=== PATIENT | female | born 1965 | race American Indian/Alaskan Native ===

== ENCOUNTER 2016-11-11 19:02 | Emergency (ER) | payer MEDICAID ==
[~2016-11-11] VITALS: Ht 172.7 cm; Wt 122.5 kg
--- NOTE | 2016-11-11 19:13 | NUR ---
Patient to ER bed 4 to gown for evaluation. Side rails up. Report given to BO LIND.
[2016-11-11 19:15] VITALS: BP_SYST 209
[2016-11-11] MEDS ORDERED: digitek PO (19:37)
[2016-11-11] MEDS ORDERED: ALPR0.5T8 PO (19:38)
[2016-11-11] MEDS ORDERED: BACL10TA PO (19:39)
[2016-11-11] MEDS ORDERED: LOSA50TA3 PO (19:40)
[2016-11-11] MEDS ORDERED: FURO-149 PO (19:40)
--- NOTE | 2016-11-11 19:40 | NUR ---
DR. BENITEZ AT BEDSIDE EXAMINING THE PT.
[2016-11-11] MEDS ORDERED: CHOL200035 PO (19:41)
[2016-11-11] MEDS ORDERED: NAPR-690 PO (19:42)
[2016-11-11] MEDS ORDERED: GLU500 PO (19:42)
[2016-11-11] MEDS ORDERED: AZU500 PO (19:43)
[2016-11-11] MEDS ORDERED: MIRT30TA7 PO (19:43)
[2016-11-11] MEDS ORDERED: CARV12.548 PO (19:44)
[2016-11-11] MEDS ORDERED: ALBU8.5H8 INH (19:45)
[2016-11-11] MEDS ORDERED: FOLI-43 PO (19:45)
--- NOTE | 2016-11-11 19:45 | NUR ---
Pt. to ER AAOx4 presented herself with high blood pressure and back pain states that she went to [facility] to submit herself however the staff refuses take her with high blood pressure systolic 220, c/o fe pain 10/04, states " everything in life sucks, my life is so sad and i can not stop crying". skin cool to touch, tachycardiac, clear speech, follows commands, on director of cardiac cath lab
--- NOTE | 2016-11-11 19:46 | NUR ---
Medication reconciliation completed with information provided by patient. Any prior medication reconciliation on file was reviewed and corrected.
[2016-11-11] MEDS ORDERED: cloNIDine HCL 0.1 MG TABLET PO ONE (20:00)
[2016-11-11] MEDS ORDERED: NACL 0.9% 1,000 ML IV ONE (20:00)
[2016-11-11] MEDS ORDERED: LORazepam 2 MG/ML VIAL (FOR ER USE) IVP ONE (20:00)
[2016-11-11 20:02] LABS: BASOPHILS # (AUTO) 0.1 K/uL (0.0-0.2); BASOPHILS % (AUTO) 0.5 % (0.0-2.0); EOSINOPHILS # (AUTO) 0.3 K/uL (0.0-0.4); EOSINOPHILS % (AUTO) 1.8 % (0.0-4.0); HEMATOCRIT 45.9 % (36-48); HEMOGLOBIN 14.7 g/dL (12.0-16.0); LYMPHOCYTES % (AUTO) 27.6 % (20.5-51.5); MEAN CORPUSCULAR HEMOGLOBIN 29 pg (27-31); MEAN CORPUSCULAR HGB CONC 32 % (32-36); MEAN CORPUSCULAR VOLUME 91 fL (79.0-98.0); MONOCYTES # (AUTO) 1.3 K/uL (0.0-1.0); MONOCYTES % (AUTO) 9.1 % (1.7-9.3); NEUTROPHILS # (AUTO) 8.8 K/uL (1.8-7.7); PLATELET COUNT (AUTO) 392 K/uL (130-430); RED BLOOD CELL COUNT(AUTO) 5.02 MIL/uL (4.2-6.2); RED CELL DISTRIBUTION WIDTH 14.8 % (9.0-15.0); WHITE BLOOD COUNT (AUTO) 14.5 K/uL (4.8-10.8)
[2016-11-11 20:10] LABS: ANION GAP 7 (5-15); CALCIUM 9.1 mg/dL (8.4-11.0); CHLORIDE 103 mmol/L (98-107); CREATININE 0.93 mg/dL (0.55-1.30); GLUCOSE 215 mg/dL (70-99); POTASSIUM 3.9 mmol/L (3.5-5.1); SODIUM SERUM 136 mmol/L (136-145); UREA NITROGEN, BLOOD 16 mg/dL (8-21)
[2016-11-11 20:13] LABS: GFR AFRICAN AMERICAN 82 mL/min (>90)
[2016-11-11 20:14] LABS: ALANINE AMINOTRANSFERASE 54 U/L (12-78); ALBUMIN 3.6 g/dL (3.4-4.8); ASPARTATE AMINOTRANSFERASE 32 U/L (10-37); SALICYLATE 3 mg/dL (3-30); TOTAL BILIRUBIN 0.2 mg/dL (0.0-1.0)
[2016-11-11 20:20] LABS: ALCOHOL, BLOOD < 3 mg/dL (<10)
[2016-11-11 20:22] LABS: ACETAMINOPHEN < 1 ug/mL (1-30)
--- NOTE | 2016-11-11 21:05 | NUR ---
Patient resting quietly. No acute distress noted. Vital signs within normal range.
--- NOTE | 2016-11-11 21:11 | NUR ---
Pelon baird in ED - 11/11/16 at 2356 by TONY Pt. to the bathroom carried by mother to obtain urine sample, pt. calm, talkative, smiling and playful
[2016-11-11 22:50] VITALS: BP_SYST 131
--- NOTE | 2016-11-11 22:50 | NUR ---
Patient given written and verbal discharge instructions and verbalizes understanding. ER MD Dr. Hu discussed with patient the results and treatment provided. Patient in stable condition. ID arm band removed. IV catheter removed intact and dressing applied, no active bleeding. NO rX given. Patient educated on pain management and to follow up with PMD. Pain Scale 0/10 Opportunity for questions provided and answered.
== END 2016-11-11 22:50 | disposition home or self-care (01) ==
LOC: SED 19:02
DX: I10 Essential (primary) hypertension (principal); F41.8 Other specified anxiety disorders; Z79.899 Other long term (current) drug therapy
CPT/HCPCS: 36415; 80053; 82962; 85025; 96361; 96374; 99284; G0480; G0481; G0482; J2060; J7030

== ENCOUNTER 2017-04-03 00:01 | Emergency (ER) | payer MEDICAID ==
[~2017-04-03] VITALS: Ht 172.7 cm; Wt 124.7 kg
[2017-04-03 00:01] VITALS: BP_SYST 200
[~2017-04-03 00:01] MED LIST: ALBU8.5H8 INH; ALPR0.5T8 PO; AZU500 PO; BACL10TA PO; CARV12.548 PO; CHOL200035 PO; FOLI-43 PO; FURO-149 PO; GLU500 PO; LOSA50TA3 PO; MIRT30TA7 PO; NAPR-690 PO; digitek PO
[2017-04-03] MEDS ORDERED: MOME220A2 INH (00:33)
[2017-04-03] MEDS ORDERED: METH2.5T PO (00:33)
[2017-04-03] MEDS ORDERED: BUPR-120 PO (00:33)
[2017-04-03] MEDS ORDERED: GABA-531 PO (00:33)
[2017-04-03] MEDS ORDERED: VITD2000 PO (00:33)
[2017-04-03] MEDS ORDERED: TOFA5TAB PO (00:33)
[2017-04-03] MEDS ORDERED: ALBMDI INH (00:33)
[2017-04-03] MEDS ORDERED: FLUT1BLS3 INH (00:33)
[2017-04-03] MEDS ORDERED: DIGO250T78 PO (00:33)
[2017-04-03] MEDS ORDERED: cloNIDine HCL 0.1 MG TABLET PO ONE (00:45)
[2017-04-03] MEDS ORDERED: FLUCONAZOLE 200 MG TABLET (DIFLUCAN) PO ONE (00:45)
[2017-04-03] MEDS ORDERED: LORazepam 1 MG TABLET PO ONE (00:45)
[2017-04-03] MEDS ORDERED: FLUCONAZOLE 100 MG TABLET (DIFLUCAN) ONE (00:56)
[2017-04-03 01:41] VITALS: BP_SYST 167
== END 2017-04-03 01:41 | disposition home or self-care (01) ==
LOC: SED 00:01
DX: I10 Essential (primary) hypertension (principal); F41.9 Anxiety disorder, unspecified; B37.9 Candidiasis, unspecified; E11.9 Type 2 diabetes mellitus without complications; F32.9 Major depressive disorder, single episode, unspecified; Z98.51 Tubal ligation status; Z79.899 Other long term (current) drug therapy; Z90.49 Acquired absence of other specified parts of digestive tract
CPT/HCPCS: 99284

== ENCOUNTER 2017-04-07 19:45 | Emergency (ER) | payer MEDICAID ==
[~2017-04-07] VITALS: Ht 172.7 cm; Wt 124.7 kg
[~2017-04-07 19:45] MED LIST changes: +ALBMDI INH; -ALBU8.5H8 INH; -ALPR0.5T8 PO; -AZU500 PO; +BUPR-120 PO; -CHOL200035 PO; +DIGO250T78 PO; +FLUT1BLS3 INH; +GABA-531 PO; +METH2.5T PO; +MOME220A2 INH; +TOFA5TAB PO; +VITD2000 PO; -digitek PO
[2017-04-07 19:51] VITALS: BP_SYST 157
[2017-04-07] MEDS ORDERED: LORazepam 2 MG/ML VIAL (FOR ER USE) IVP ONE (20:15)
[2017-04-07 20:36] LABS: BASOPHILS # (AUTO) 0.1 K/uL (0.0-0.2); BASOPHILS % (AUTO) 0.5 % (0.0-2.0); EOSINOPHILS # (AUTO) 0.1 K/uL (0.0-0.4); EOSINOPHILS % (AUTO) 0.5 % (0.0-4.0); HEMATOCRIT 45.3 % (36-48); HEMOGLOBIN 14.8 g/dL (12.0-16.0); LYMPHOCYTES % (AUTO) 26.7 % (20.5-51.5); MEAN CORPUSCULAR HEMOGLOBIN 31 pg (27-31); MEAN CORPUSCULAR HGB CONC 33 % (32-36); MEAN CORPUSCULAR VOLUME 94 fL (79.0-98.0); MONOCYTES # (AUTO) 1.1 K/uL (0.0-1.0); MONOCYTES % (AUTO) 7.1 % (1.7-9.3); NEUTROPHILS # (AUTO) 9.8 K/uL (1.8-7.7); NEUTROPHILS % (AUTO) 65.2 % (40.0-70.0); PLATELET COUNT (AUTO) 374 K/uL (130-430); RED CELL DISTRIBUTION WIDTH 14.4 % (9.0-15.0); WHITE BLOOD COUNT (AUTO) 15.1 K/uL (4.8-10.8)
[2017-04-07 20:48] LABS: PROTHROMBIN TIME 10.1 SECS (9.5-12.5)
[2017-04-07 21:03] LABS: ALBUMIN 3.6 g/dL (3.4-4.8); CALCIUM 8.8 mg/dL (8.4-11.0); CREATININE 1.24 mg/dL (0.55-1.30); POTASSIUM 3.7 mmol/L (3.5-5.1); TOTAL BILIRUBIN 0.5 mg/dL (0.0-1.0)
[2017-04-07] MEDS ORDERED: INSULIN NPH 100 UNITS/ML 10 ML VIAL SUBCUT ONE (21:15)
[2017-04-07] MEDS ORDERED: INSULIN REGULAR, HUMAN 10 UNITS/0.1 ML INJ SUBCUT ONE (21:15)
[2017-04-07] MEDS ORDERED: NACL 0.9% 1,000 ML IV ONE (21:15)
[2017-04-07 22:05] LABS: BILIRUBIN,URINE NEGATIVE (NEGATIVE); BLOOD, URINE 2+ (NEGATIVE); CLARITY/URINE HAZY (CLEAR); COLOR,URINE YELLOW (YELLOW); GLUCOSE,URINE 3+ (NEGATIVE); KETONES,URINE NEGATIVE (NEGATIVE); LEUKOCYTE ESTERASE ,URINE NEGATIVE (NEGATIVE); NITRITE, URINE NEGATIVE (NEGATIVE); PROTEIN URINE 1+ (NEGATIVE); UROBILINOGEN,URINE 0.2 (0.2-1.0)
[2017-04-07 22:31] LABS: BACTERIA,URINE FEW /HPF (None Seen); FINE GRANULAR CASTS,URINE 0-10 /LPF (None Seen); MUCUS,URINE None Seen /LPF (None Seen); WBC,URINE 0-3 /HPF (0-3)
[2017-04-07 22:37] LABS: BARBITURATE, URINE NEGATIVE (NEG <=200); BENZODIAZEPINE, URINE POSITIVE (NEG <=150); CANNABINOID, URINE NEGATIVE (NEG <=50); COCAINE, URINE NEGATIVE (NEG <=150); METHAMPHETAMINES SCREEN,URINE POSITIVE (NEG <=500); OPIATE, URINE NEGATIVE (NEG <=100); PHENCYCLIDINE SCREEN,URINE NEGATIVE (NEG <=25); UR TRICYCLIC ANTIDEPRESSANTS NEGATIVE (NEG <=300); URINE AMPHETAMINE POSITIVE (NEG <=500); URINE METHADONE NEGATIVE (NEG <=200); URINE OXYCODONE SCREEN NEGATIVE (NEG <=100); URINE PROPOXYPHENE SCREEN NEGATIVE (NEG <=300)
[2017-04-07] MEDS ORDERED: ADENOSINE 6MG/2ML VIAL IVP ONE (22:45)
[2017-04-07 23:20] VITALS: BP_SYST 137
== END 2017-04-07 23:20 | disposition home or self-care (01) ==
LOC: SED 19:45
DX: F15.10 Other stimulant abuse, uncomplicated (principal); F41.9 Anxiety disorder, unspecified; E11.9 Type 2 diabetes mellitus without complications; I10 Essential (primary) hypertension; F32.9 Major depressive disorder, single episode, unspecified; Z79.899 Other long term (current) drug therapy
CPT/HCPCS: 36415; 36600; 71010; 80053; 80307; 81000; 82803; 83605; 83880; 84484; 85025; 85379; 85610; 87040; 93005; 96361; 96372; 96374; 96375; 99285; J0153; J2060; J7030; J1815

== ENCOUNTER 2017-05-07 20:07 | Emergency (ER) | payer MEDICAID ==
[~2017-05-07] VITALS: Ht 172.7 cm; Wt 115.7 kg
[2017-05-07 20:07] VITALS: BP_SYST 179
--- NOTE | 2017-05-07 20:07 | NUR ---
Patient to ER bed 1 to gown for evaluation. Side rails up. Report given to BO HAMILTON.
--- NOTE | 2017-05-07 20:10 | NUR ---
Patient placed on suicide precautions. Patient placed in room within close proximity to nurses' station for closer observation and monitoring. All clothing removed, placed in hospital gown. Metal detector wand used to further screen patient of any potential hazardous belongings. All belongings inventoried, placed in bags and removed from room. Cabinets locked. BP and pulse oximeter cords, and lunchroom monitor leads removed. Addendum: 05/08/17 at 0400 by JUDI See suicide packet in chart.
--- NOTE | 2017-05-07 20:10 | NUR ---
ER Dr. Collins at bedside examining patient.
--- NOTE | 2017-05-07 20:10 | NUR ---
Pt states that around 1500, pt developed chest pain and took 10 nitros for the pain. Upon arrivial by ALS, pt was inconsoluble crying and stating she is in no pain at this time. Pt denies trying to herself or the staff. Pt is not hearing voices or seeing things. Pt states that she has been really depressed since her mom . Pt stated that "I hate my family". AAOx4. Will continue to monitor. No other injuries or complaints mentioned/noted. No distress noted.
[2017-05-07] MEDS ORDERED: NACL 0.9% 1,000 ML IV ONE (20:17)
--- NOTE | 2017-05-07 20:23 | NUR ---
Called Poison Control at [phone] and spoke with TERESITA. Per recommendations: MONITOR VITALS FOR 2 HOURS AND DRAW LABS FOR TYLENOL AND ASA. Dr. SYED notified. Will continue to monitor patient.
[2017-05-07] MEDS ORDERED: LORazepam 2 MG/ML VIAL (FOR ER USE) IVP ONE (20:30)
[2017-05-07 20:40] LABS: BASOPHILS % (AUTO) 0.4 % (0.0-2.0); EOSINOPHILS # (AUTO) 0.3 K/uL (0.0-0.4); HEMATOCRIT 44.8 % (36-48); HEMOGLOBIN 14.4 g/dL (12.0-16.0); LYMPHOCYTES # (AUTO) 2.7 K/uL (1.0-5.5); LYMPHOCYTES % (AUTO) 28.4 % (20.5-51.5); MEAN CORPUSCULAR HEMOGLOBIN 30 pg (27-31); MEAN CORPUSCULAR HGB CONC 32 % (32-36); MEAN CORPUSCULAR VOLUME 93 fL (79.0-98.0); MONOCYTES # (AUTO) 1.3 K/uL (0.0-1.0); MONOCYTES % (AUTO) 13.5 % (1.7-9.3); NEUTROPHILS # (AUTO) 5.3 K/uL (1.8-7.7); NEUTROPHILS % (AUTO) 54.7 % (40.0-70.0); PLATELET COUNT (AUTO) 348 K/uL (130-430); RED CELL DISTRIBUTION WIDTH 13.5 % (9.0-15.0); WHITE BLOOD COUNT (AUTO) 9.6 K/uL (4.8-10.8)
[2017-05-07 20:47] LABS: BILIRUBIN,URINE NEGATIVE (NEGATIVE); CLARITY/URINE CLEAR (CLEAR); COLOR,URINE YELLOW (YELLOW); GLUCOSE,URINE 3+ (NEGATIVE); KETONES,URINE NEGATIVE (NEGATIVE); LEUKOCYTE ESTERASE ,URINE NEGATIVE (NEGATIVE); NITRITE, URINE NEGATIVE (NEGATIVE); PROTEIN URINE TRACE (NEGATIVE); UROBILINOGEN,URINE 0.2 (0.2-1.0)
[2017-05-07 20:58] LABS: BLOOD, URINE TRACE (NEGATIVE)
[2017-05-07 20:59] LABS: ANION GAP 8 (5-15); CALCIUM 8.9 mg/dL (8.4-11.0); CHLORIDE 96 mmol/L (98-107); CREATININE 0.91 mg/dL (0.55-1.30); POTASSIUM 3.9 mmol/L (3.5-5.1); SODIUM SERUM 131 mmol/L (136-145); UREA NITROGEN, BLOOD 11 mg/dL (8-21)
[2017-05-07 21:00] LABS: ALANINE AMINOTRANSFERASE 59 U/L (12-78); ALBUMIN 3.5 g/dL (3.4-4.8); ASPARTATE AMINOTRANSFERASE 27 U/L (10-37); TOTAL BILIRUBIN 0.4 mg/dL (0.0-1.0)
[2017-05-07 21:00] LABS: BARBITURATE, URINE NEGATIVE (NEG <=200); BENZODIAZEPINE, URINE POSITIVE (NEG <=150); CANNABINOID, URINE NEGATIVE (NEG <=50); COCAINE, URINE NEGATIVE (NEG <=150); METHAMPHETAMINES SCREEN,URINE POSITIVE (NEG <=500); OPIATE, URINE NEGATIVE (NEG <=100); PHENCYCLIDINE SCREEN,URINE NEGATIVE (NEG <=25); UR TRICYCLIC ANTIDEPRESSANTS NEGATIVE (NEG <=300); URINE AMPHETAMINE POSITIVE (NEG <=500); URINE METHADONE NEGATIVE (NEG <=200); URINE OXYCODONE SCREEN NEGATIVE (NEG <=100); URINE PROPOXYPHENE SCREEN NEGATIVE (NEG <=300)
--- NOTE | 2017-05-07 21:00 | NUR ---
# 20 gauge angiocath placed to R AC. Use of asceptic technique. Opsite placed over site. Blood return noted. Blood for lab drawn from site. Flushed with 10 cc of normal saline. No evidence of infiltration noted. Patient tolerated well. Started by Zoe SORIANO.
[2017-05-07 21:01] LABS: PROTHROMBIN TIME 9.8 SECS (9.5-12.5)
[2017-05-07 21:03] LABS: GFR AFRICAN AMERICAN 84 mL/min (>90); GLUCOSE 506 mg/dL (70-99)
[2017-05-07 21:04] LABS: ALCOHOL, BLOOD < 3 mg/dL (<10)
[2017-05-07 21:05] LABS: ACETAMINOPHEN < 1 ug/mL (1-30)
--- NOTE | 2017-05-07 21:07 | NUR ---
Pt is resting in the bed. VSS. Will continue to monitor.
--- NOTE | 2017-05-07 21:07 | NUR ---
Note oli in ED - 05/08/17 at 0358 by JUDI Pt is resting in the bed. VSS.Will continue to monitor.
[2017-05-07] MEDS ORDERED: NS 500 ML IV ONE (21:15)
[2017-05-07] MEDS ORDERED: INSULIN REGULAR, HUMAN 10 UNITS/0.1 ML INJ IVP ONE (21:15)
[2017-05-07 21:17] LABS: BACTERIA,URINE RARE /HPF (None Seen)
--- NOTE | 2017-05-07 22:07 | NUR ---
Pt is resting comfortably in the bed. VSS. Will continue to monitor.
--- NOTE | 2017-05-07 23:09 | NUR ---
Pt is resting comfortably in the bed. VSS. Will continue to monitor.
--- NOTE | 2017-05-08 00:07 | NUR ---
Pt is resting comfortably in the bed. VSS. Will continue to monitor.
--- NOTE | 2017-05-08 01:07 | NUR ---
Pt is resting comfortably in the bed. VSS. Will continue to monitor.
--- NOTE | 2017-05-08 01:50 | NUR ---
PT IS SLEEPING IN ER BED COMFORTABLY,NO SIGN OF DISTRESS .CONTINUE OF MONITORING.
--- NOTE | 2017-05-08 02:07 | NUR ---
Pt is resting comfortably in the bed. VSS. Will continue to monitor.
[2017-05-08] MEDS ORDERED: INSULIN REGULAR, HUMAN 10 UNITS/0.1 ML INJ IVP ONE (02:30)
--- NOTE | 2017-05-08 02:50 | NUR ---
PT STILL SLEEPING ,CONTINUE OF MONITORING
--- NOTE | 2017-05-08 03:07 | NUR ---
Pt is resting comfortably in the bed. VSS. Will continue to monitor.
--- NOTE | 2017-05-08 03:50 | NUR ---
PT ASKED SOME SNACKS STATED THAT SHE'S HUNGRY,AFTER SHE ATE HER SNACKS SHE BACK TO SLEEP.CONTINUE OF MONITORING.
--- NOTE | 2017-05-08 04:07 | NUR ---
Pt is resting comfortably in the bed. VSS. Will continue to monitor.
--- NOTE | 2017-05-08 04:50 | NUR ---
PT IS AWAKE SHE ASKED TO GO TO THE REST ROOM,PT BACK TO BED AND SLEEP.CONTINUE OF MONITORING.
--- NOTE | 2017-05-08 05:07 | NUR ---
Pt is resting comfortably in the bed. VSS. Will continue to monitor.
--- NOTE | 2017-05-08 05:25 | NUR ---
Pt woke up stated that she could not breathe. Lung sounds clear bilaterally. Pt appears very anxious. Dr. Collins made aware.
--- NOTE | 2017-05-08 05:35 | NUR ---
IV on R AC no longer viable. # 20 gauge angiocath placed to R hand. Use of asceptic technique. Opsite placed over site. Blood return noted. Flushed with 10 cc of normal saline. No evidence of infiltration noted. Patient tolerated well.
[2017-05-08] MEDS ORDERED: LORazepam 2 MG/ML VIAL (FOR ER USE) IVP ONE (05:45)
--- NOTE | 2017-05-08 05:50 | NUR ---
PT IS AWAKE SHE STATED SHE FEEL ANXIOUS RIGHT NOW,NURSE CAME TO GIVE SOME MEDICATION TO CALM DOWN .PT BACK TO SLEEP NOW.CONTINUE OF MONITORING.
--- NOTE | 2017-05-08 06:02 | NUR ---
CLOSING MY NOTES ENDORSE TO THE DAY SHIFT.
--- NOTE | 2017-05-08 06:07 | NUR ---
Pt is resting comfortably in the bed. VSS. Will continue to monitor.
--- NOTE | 2017-05-08 06:41 | NUR ---
PATIENT IN ER BED WITH EYES CLOSED LYING ON HER LEFT SIDE .WILL CONTINUE TO MOINTOR AT BEDSIDE .
--- NOTE | 2017-05-08 07:00 | NUR ---
Received report from BO Navarro at bedside. Patient remains on suicide precautions. Patient placed in room within close proximity to nurses' station for closer observation and monitoring. All clothing removed, placed in hospital gown. Metal detector wand used to further screen patient of any potential hazardous belongings. All belongings have been inventoried, placed in bags and removed from room. Cabinets locked. BP and pulse oximeter cords, and electrical panel builder leads removed. 1:1 sitter remains at bedside for close observations for safety.
--- NOTE | 2017-05-08 07:05 | NUR ---
Report and care endorsed to Nick SORIANO.
--- NOTE | 2017-05-08 07:15 | NUR ---
Pt is resting comfortably in the bed. VSS. Will continue to monitor.
--- NOTE | 2017-05-08 07:28 | NUR ---
PATIENT IS SETTING UP AT SIDE OF BED EATING HER BREAKFAST .
--- NOTE | 2017-05-08 07:30 | NUR ---
Pt is resting comfortably in the bed. VSS. Will continue to monitor.
--- NOTE | 2017-05-08 07:45 | NUR ---
Pt is resting comfortably in the bed. VSS. Will continue to monitor.
--- NOTE | 2017-05-08 08:00 | NUR ---
Patient resting quietly. No acute distress noted. Vital signs within normal range.
--- NOTE | 2017-05-08 08:15 | NUR ---
Patient resting quietly. No acute distress noted. Vital signs within normal range.
--- NOTE | 2017-05-08 08:23 | NUR ---
Patient is lying in er bed with eyes closed .will continue to mointor at bedside
--- NOTE | 2017-05-08 08:30 | NUR ---
Patient resting quietly. No acute distress noted. Vital signs within normal range.
--- NOTE | 2017-05-08 08:45 | NUR ---
Patient resting quietly. No acute distress noted. Vital signs within normal range.
--- NOTE | 2017-05-08 08:45 | NUR ---
Patient resting quietly. No acute distress noted. Vital signs within normal range.
--- NOTE | 2017-05-08 09:00 | NUR ---
Patient resting quietly. No acute distress noted. Vital signs within normal range.
[2017-05-08] MEDS ORDERED: LORazepam 2 MG/ML VIAL (FOR ER USE) IM ONE (09:15)
--- NOTE | 2017-05-08 09:15 | NUR ---
Patient resting quietly. No acute distress noted. Vital signs within normal range.
--- NOTE | 2017-05-08 09:30 | NUR ---
Patient resting quietly. No acute distress noted. Vital signs within normal range.
--- NOTE | 2017-05-08 09:45 | NUR ---
Patient resting quietly. No acute distress noted. Vital signs within normal range.
--- NOTE | 2017-05-08 10:00 | NUR ---
Patient resting quietly. No acute distress noted. Vital signs within normal range.
--- NOTE | 2017-05-08 10:05 | NUR ---
Social Service Note: RN PEDIATRIC called to ED to meet with pt; pt presents crying and upset; talking loudly and becoming upset. RN PEDIATRIC provided emotional support. Pt states that her mother March 30 of this year and she is depressed. Pt states that she is a "depressed person". Pt states that her outpatient psychiatrist is Dr. Chris; pt states that she has had problems getting an appointment for follow up. Pt states that she was at [facility] for 3 days a week before . Pt states that she was also at [facility] in the beginning of March but left before the end of treatment due to her mother passing; pt states that she is not allowed back at [facility] due to leaving treatment twice before completing the program. Pt continues to cry on and off during assessment and becomes upset. Pt states that she took 10 nitro in a 3 hour period before coming to the hospital; pt states that she was having chest pain at home and her father gave her the nitro to take; pt denies that this was a suicide attempt. Pt states that she does not have any suicidal ideations; pt states that she has never attempted suicide. Pt reports that she has a lot of reasons to live; pt states that she is going to [place] for [place] to see her daughters; pt again states that she has no suicidal ideations. RN PEDIATRIC spoke with pt about her plan if she were discharged; pt states that she will go home and stay in her room and watch TV; pt wants to be alone she states. RN PEDIATRIC spoke to physician; pt's mood is labile and continues to change from calm and cooperative to crying and shouting. Pt should be evaluated by PET team or psychiatrist for further evaluation. RN PEDIATRIC will remain available for support and will follow up as needed.
--- NOTE | 2017-05-08 10:55 | NUR ---
patient is lying in er bed .
[2017-05-08] MEDS ORDERED: HALOPERIDOL LACTATE 5 MG/ML VIAL IM ONE ×2 (11:15→17:45)
[2017-05-08] MEDS ORDERED: DIPHENHYDRAMINE INJ 50 MG/ML VIAL IM ONE ×2 (11:15→17:45)
[2017-05-08] MEDS ORDERED: DIPHENHYDRAMINE INJ 50 MG/ML VIAL ONE ×2 (11:15→17:48)
--- NOTE | 2017-05-08 11:15 | NUR ---
Patient got up to use the restroom .patient was escourted to restroom and back to er bed .
--- NOTE | 2017-05-08 11:30 | NUR ---
patient was sitting at edge of er bed patient asked for water .water was given patient went back to lie bad in er bed with both side rails up for safty.will continue to monitor at bedside .
--- NOTE | 2017-05-08 11:30 | NUR ---
Medication administered per MD orders. No adverse reactions noted.
--- NOTE | 2017-05-08 11:45 | NUR ---
Patient recieved lunch tray at bedside patient was rest confortably in er bed .
--- NOTE | 2017-05-08 12:00 | NUR ---
Patient woke up to eat her lunch patient ate and tray was removed from room and is now in er bed resting .
--- NOTE | 2017-05-08 12:00 | NUR ---
Patient got out of bed waled to restroom and was escourted back to er bed patient sat in a chair at bedside asking to get dress and wanting to go home.
--- NOTE | 2017-05-08 12:15 | NUR ---
Patient got up from chair and drank a cup of water and went to sit in er bed will continue to monitor at bedside .
--- NOTE | 2017-05-08 12:30 | NUR ---
Patient took off her gown and stated that she was going to leave and wanted her clothes patient was redirected to put her gown back on .patient stated that she did not care charge nurse was notified and spoke to patient .will continue to monitor at bedside .
--- NOTE | 2017-05-08 12:43 | NUR ---
Patient is resting in er bed .will contiune to monitor .
--- NOTE | 2017-05-08 13:00 | NUR ---
Direct observation notes :Patient got out of bed and walked to restroom and was escourted back to er bed .
--- NOTE | 2017-05-08 13:15 | NUR ---
Observation notes : Patient is lying in er bed resting .
--- NOTE | 2017-05-08 13:15 | NUR ---
Pelon baird in [facility] - 05/08/17 at 1610 by SDCNARV observation notes: Patient is resting in bed with side rails up will contiune to monitor
--- NOTE | 2017-05-08 13:30 | NUR ---
Observation notes : Patient continues to be resting in bed will continue to monitor at bedside .
--- NOTE | 2017-05-08 13:55 | NUR ---
Pt BP 82/35. Dr Johnson notified. 1000 NS Bolus administered. Will continue to monitor
--- NOTE | 2017-05-08 14:00 | NUR ---
Observation notes: patient continues to be resting in er bed on her right side will continue to monitor at bed side .
--- NOTE | 2017-05-08 14:25 | NUR ---
Patient is resting in er bed with eyes closed will continue to monitor at bedside
--- NOTE | 2017-05-08 14:45 | NUR ---
observation notes : Patient is resting in bed
--- NOTE | 2017-05-08 15:00 | NUR ---
observation notes: patient continues to be lying in er bed with eyes closed will continue to monitor at bedside .
--- NOTE | 2017-05-08 15:26 | NUR ---
patient continues to be lying in the er bed with her eyes closed .will continue to monitor at bed side .
--- NOTE | 2017-05-08 15:30 | NUR ---
Observation notes: patient started to yell patient was redirected and patient clamed down and continued to lay down in er bed with side rail up.
--- NOTE | 2017-05-08 15:45 | NUR ---
observation notes : patient is resting in bed
--- NOTE | 2017-05-08 16:28 | NUR ---
PT sleeping @ this time. No signs of any type of distress. Vital signs stable. Will continue to monitor for changes.
--- NOTE | 2017-05-08 16:42 | NUR ---
PT sleeping @ this time. No signs of any type of distress. Vital signs stable. Will continue to monitor for changes.
--- NOTE | 2017-05-08 17:01 | NUR ---
Observation notes : Patient woke up got out of bed and walked to the restroom and was escourted back to er bed .patient is now in bed lying on her back with her eyes closed .
--- NOTE | 2017-05-08 17:15 | NUR ---
Observation notes : patient is resting in bed .
--- NOTE | 2017-05-08 17:34 | NUR ---
observation notes: patient continues to be lying in bed resting .
--- NOTE | 2017-05-08 17:47 | NUR ---
observation notes : patient is yelling in er bed asking for a shot rn was notified patient was redirected to stop yelling and calm down.rn in room
[2017-05-08] MEDS ORDERED: HALOPERIDOL LACTATE 5 MG/ML VIAL ONE (17:49)
--- NOTE | 2017-05-08 18:00 | NUR ---
observation notes : patient is lying on her leftside resting in er bed .
--- NOTE | 2017-05-08 18:15 | NUR ---
PT sleeping at this time, no signs of any distress. Vital signs stable. Will continue to monitor
--- NOTE | 2017-05-08 18:30 | NUR ---
PT sleeping at this time, no signs of any distress. Vital signs stable. Will continue to monitor
--- NOTE | 2017-05-08 18:45 | NUR ---
PT sleeping at this time, no signs of any distress. Vital signs stable. Will continue to monitor.
--- NOTE | 2017-05-08 19:00 | NUR ---
PT sleeping at this time, no signs of any distress. Vital signs stable. Will continue to monitor
--- NOTE | 2017-05-08 19:17 | NUR ---
PT sleeping at this time, no signs of any distress. Vital signs stable. Will continue to monitor
--- NOTE | 2017-05-08 19:23 | NUR ---
Endorsed care and report given to BO Tran at bedside.
--- NOTE | 2017-05-08 19:30 | NUR ---
PT SISTER, ANKUR, , NOTIFIED PT IS HERE AT [facility].
[2017-05-08] MEDS ORDERED: LORazepam 2 MG/ML VIAL IM ONE (19:45)
--- NOTE | 2017-05-08 19:45 | NUR ---
PT sleeping at this time, no signs of any distress. Vital signs stable. Will continue to monitor
--- NOTE | 2017-05-08 20:12 | NUR ---
Nurse at beside administering medication. PT remained calm and non combative. PT fell back to sleep and vital signs remained stable. Will continue to monitor PT for changes
--- NOTE | 2017-05-08 20:30 | NUR ---
Pelon baird in EDM - 05/08/17 at 2048 by ARDEN Nurse at beside administering medication. PT remained calm and non combative. PT fell back to sleep and vital signs remained stable. Will continue to monitor PT for changes
--- NOTE | 2017-05-08 20:30 | NUR ---
PT sleeping at this time, no signs of any distress. Vital signs stable. Will continue to monitor
--- NOTE | 2017-05-08 20:45 | NUR ---
PT sleeping at this time, no signs of any distress. Vital signs stable. Will continue to monitor
--- NOTE | 2017-05-08 21:00 | NUR ---
PT sleeping at this time, no signs of any distress. Vital signs stable. Will continue to monitor
--- NOTE | 2017-05-08 21:15 | NUR ---
PT sleeping at this time, no signs of any distress. Vital signs stable. Will continue to monitor
--- NOTE | 2017-05-08 21:30 | NUR ---
PT sleeping at this time, no signs of any distress. Vital signs stable. Will continue to monitor
--- NOTE | 2017-05-08 21:45 | NUR ---
PT sleeping at this time, no signs of any distress. Vital signs stable. Will continue to monitor
--- NOTE | 2017-05-08 22:00 | NUR ---
PT sleeping at this time, no signs of distress. PT vitals stable. Will continue to monitor.
--- NOTE | 2017-05-08 22:15 | NUR ---
PT sleeping at this time, no signs of any distress. Vital signs stable. Will continue to monitor
--- NOTE | 2017-05-08 22:30 | NUR ---
PT sleeping at this time, no signs of any distress. Vital signs stable. Will continue to monitor
--- NOTE | 2017-05-08 22:45 | NUR ---
PT sleeping at this time, no signs of any distress. Vital signs stable. Will continue to monitor
--- NOTE | 2017-05-08 23:00 | NUR ---
PT woke up to use the restroom. PT asked for medication and went back to sleep. No signs of any type of distress at the moment. PT vitals stable. Will continue to monitor PT for any changes
--- NOTE | 2017-05-08 23:15 | NUR ---
PT sleeping at this time, no signs of any distress. Vital signs stable. Will continue to monitor for any changes.
--- NOTE | 2017-05-08 23:30 | NUR ---
PT sleeping at this time, no signs of any distress. Vital signs stable. Will continue to monitor
--- NOTE | 2017-05-08 23:45 | NUR ---
PT sleeping at this time, no signs of any distress. Vital signs stable. Will continue to monitor
--- NOTE | 2017-05-09 | NUR ---
PT sleeping at this time, no signs of any distress. Vital signs stable. Will continue to monitor
--- NOTE | 2017-05-09 00:15 | NUR ---
PT sleeping at this time, no signs of any distress. Vital signs stable. Will continue to monitor
--- NOTE | 2017-05-09 00:30 | NUR ---
PT sleeping at this time, no signs of any distress. Vital signs stable. Will continue to monitor
--- NOTE | 2017-05-09 00:45 | NUR ---
PT sleeping at this time, no signs of any distress. Vital signs stable. Will continue to monitor
--- NOTE | 2017-05-09 01:00 | NUR ---
PT sleeping at this time, no signs of any distress. Vital signs stable. Will continue to monitor
--- NOTE | 2017-05-09 01:15 | NUR ---
PT SLEEPING CHEST RISING AND FALLING. NO SUICIDAL IDEATIONS. SAFETY PRECAUTIONS IN PLACE. WILL CONTINUE TO MONITOR.
--- NOTE | 2017-05-09 01:30 | NUR ---
PT SLEEPING CHEST RISING AND FALLING. NO SUICIDAL IDEATIONS. SAFETY PRECAUTIONS IN PLACE. WILL CONTINUE TO MONITOR.
--- NOTE | 2017-05-09 01:45 | NUR ---
PT SLEEPING CHEST RISING AND FALLING. NO SUICIDAL IDEATIONS. SAFETY PRECAUTIONS IN PLACE. WILL CONTINUE TO MONITOR.
--- NOTE | 2017-05-09 02:00 | NUR ---
PT SLEEPING CHEST RISING AND FALLING. NO SUICIDAL IDEATIONS. SAFETY PRECAUTIONS IN PLACE. WILL CONTINUE TO MONITOR.
--- NOTE | 2017-05-09 02:15 | NUR ---
PT SLEEPING CHEST RISING AND FALLING. NO SUICIDAL IDEATIONS. SAFETY PRECAUTIONS IN PLACE. WILL CONTINUE TO MONITOR.
--- NOTE | 2017-05-09 02:30 | NUR ---
PT SLEEPING CHEST RISING AND FALLING. NO SUICIDAL IDEATIONS. SAFETY PRECAUTIONS IN PLACE. WILL CONTINUE TO MONITOR.
--- NOTE | 2017-05-09 02:45 | NUR ---
PT SLEEPING CHEST RISING AND FALLING. NO SUICIDAL IDEATIONS. SAFETY PRECAUTIONS IN PLACE. WILL CONTINUE TO MONITOR.
--- NOTE | 2017-05-09 03:00 | NUR ---
PT SLEEPING CHEST RISING AND FALLING. NO SUICIDAL IDEATIONS. SAFETY PRECAUTIONS IN PLACE. WILL CONTINUE TO MONITOR.
--- NOTE | 2017-05-09 03:15 | NUR ---
PT SLEEPING CHEST RISING AND FALLING. NO SUICIDAL IDEATIONS. SAFETY PRECAUTIONS IN PLACE. WILL CONTINUE TO MONITOR.
--- NOTE | 2017-05-09 03:30 | NUR ---
PT SLEEPING CHEST RISING AND FALLING. NO SUICIDAL IDEATIONS. SAFETY PRECAUTIONS IN PLACE. WILL CONTINUE TO MONITOR.
--- NOTE | 2017-05-09 03:45 | NUR ---
PT SLEEPING CHEST RISING AND FALLING. NO SUICIDAL IDEATIONS. SAFETY PRECAUTIONS IN PLACE. WILL CONTINUE TO MONITOR.
--- NOTE | 2017-05-09 04:00 | NUR ---
PT SLEEPING CHEST RISING AND FALLING. NO SUICIDAL IDEATIONS. SAFETY PRECAUTIONS IN PLACE. WILL CONTINUE TO MONITOR.
--- NOTE | 2017-05-09 04:15 | NUR ---
PT SLEEPING CHEST RISING AND FALLING. NO SUICIDAL IDEATIONS. SAFETY PRECAUTIONS IN PLACE. WILL CONTINUE TO MONITOR.
--- NOTE | 2017-05-09 04:30 | NUR ---
PT SLEEPING CHEST RISING AND FALLING. NO SUICIDAL IDEATIONS. SAFETY PRECAUTIONS IN PLACE. WILL CONTINUE TO MONITOR.
--- NOTE | 2017-05-09 04:45 | NUR ---
PT SLEEPING CHEST RISING AND FALLING. NO SUICIDAL IDEATIONS. SAFETY PRECAUTIONS IN PLACE. WILL CONTINUE TO MONITOR.
--- NOTE | 2017-05-09 05:00 | NUR ---
PT SLEEPING CHEST RISING AND FALLING. NO SUICIDAL IDEATIONS. SAFETY PRECAUTIONS IN PLACE. WILL CONTINUE TO MONITOR.
--- NOTE | 2017-05-09 05:15 | NUR ---
PT SLEEPING CHEST RISING AND FALLING. NO SUICIDAL IDEATIONS. SAFETY PRECAUTIONS IN PLACE. WILL CONTINUE TO MONITOR.
--- NOTE | 2017-05-09 05:30 | NUR ---
PT SLEEPING CHEST RISING AND FALLING. NO SUICIDAL IDEATIONS. SAFETY PRECAUTIONS IN PLACE. WILL CONTINUE TO MONITOR.
--- NOTE | 2017-05-09 05:45 | NUR ---
PT SLEEPING CHEST RISING AND FALLING. NO SUICIDAL IDEATIONS. SAFETY PRECAUTIONS IN PLACE. WILL CONTINUE TO MONITOR.
--- NOTE | 2017-05-09 06:00 | NUR ---
PT AWAKE, TAKEN TO USE RESTROOM, AMBULATED W/ STEADY GAIT. NO SUICIDAL IDEATIONS. SAFETY PRECAUTIONS IN PLACE. WILL CONTINUE TO MONITOR.
[2017-05-09] MEDS ORDERED: HALOPERIDOL LACTATE 5 MG/ML VIAL IM ONE (06:15)
[2017-05-09] MEDS ORDERED: DIPHENHYDRAMINE INJ 50 MG/ML VIAL IM ONE (06:15)
--- NOTE | 2017-05-09 06:15 | NUR ---
PT AWAKE. NO SUICIDAL IDEATIONS. SAFETY PRECAUTIONS IN PLACE. WILL CONTINUE TO MONITOR.
--- NOTE | 2017-05-09 06:30 | NUR ---
PT AWAKE. NO SUICIDAL IDEATIONS. SAFETY PRECAUTIONS IN PLACE. WILL CONTINUE TO MONITOR.
--- NOTE | 2017-05-09 06:45 | NUR ---
PT SLEEPING CHEST RISING AND FALLING. NO SUICIDAL IDEATIONS. SAFETY PRECAUTIONS IN PLACE. WILL CONTINUE TO MONITOR.
--- NOTE | 2017-05-09 07:00 | NUR ---
PT SLEEPING CHEST RISING AND FALLING. NO SUICIDAL IDEATIONS. SAFETY PRECAUTIONS IN PLACE. WILL CONTINUE TO MONITOR.
--- NOTE | 2017-05-09 07:15 | NUR ---
Patient resting quietly. No acute distress noted. Vital signs within normal range. Will continue to monitor.
--- NOTE | 2017-05-09 07:34 | NUR ---
Patient resting quietly. No acute distress noted. Vital signs within normal range.
--- NOTE | 2017-05-09 07:40 | NUR ---
Pt asleep and provided with safety meal tray. Pt states she does not want to eat and went back to sleep. Will continue to monitor.
--- NOTE | 2017-05-09 07:59 | NUR ---
Patient resting quietly. No acute distress noted. Vital signs within normal range.
--- NOTE | 2017-05-09 08:00 | NUR ---
ER Dr. Garner at bedside examining patient.
--- NOTE | 2017-05-09 08:04 | NUR ---
Pt out of bed in restroom. Steady gait.
--- NOTE | 2017-05-09 08:05 | NUR ---
Pt return to room and is laying on gurney. Pt states no acute distress, not wanting to harm self currently.
--- NOTE | 2017-05-09 08:15 | NUR ---
Patient resting quietly. No acute distress noted. Vital signs within normal range. Will continue to monitor.
--- NOTE | 2017-05-09 08:30 | NUR ---
Patient resting quietly. No acute distress noted. Vital signs within normal range. Will continue to monitor.
--- NOTE | 2017-05-09 08:45 | NUR ---
Patient resting quietly. No acute distress noted. Vital signs within normal range. Will continue to monitor.
--- NOTE | 2017-05-09 08:50 | NUR ---
Patient given written and verbal discharge instructions and verbalizes understanding. ER MD discussed with patient the results and treatment provided. Patient in stable condition. ID arm band removed. No Rx given. Patient educated on pain management and to follow up with PMD. Pain Scale 0/10. Opportunity for questions provided and answered.
--- NOTE | 2017-05-09 09:40 | NUR ---
Director and Dr. Garner discussed pt's status and state she is still on hold and ER MD cannot release pt. Pt brought back from waiting room back to bed 5.
--- NOTE | 2017-05-09 10:00 | NUR ---
Patient resting quietly. No acute distress noted. Vital signs within normal range.
--- NOTE | 2017-05-09 10:15 | NUR ---
Patient resting quietly. No acute distress noted. Vital signs within normal range. Will continue to monitor.
--- NOTE | 2017-05-09 10:38 | NUR ---
Patient resting quietly. No acute distress noted. Vital signs within normal range.
--- NOTE | 2017-05-09 11:00 | NUR ---
Patient resting quietly. No acute distress noted. Vital signs within normal range.
--- NOTE | 2017-05-09 11:15 | NUR ---
Patient resting quietly. No acute distress noted. Vital signs within normal range. Will continue to monitor.
--- NOTE | 2017-05-09 11:17 | NUR ---
Social Service Note: [facility] has contacted the following facilities: [facility]-DEPARTMENTAL BUYER spoke to Biju, no beds. [facility]- DEPARTMENTAL BUYER spoke to their intake, no beds. [facility]- DEPARTMENTAL BUYER spoke to Ramon, no beds. [facility]- DEPARTMENTAL BUYER spoke to Marivel, no beds. [facility]- DEPARTMENTAL BUYER spoke to Rell, no beds. [facility]- DEPARTMENTAL BUYER spoke to Tamara, no beds. [facility]- DEPARTMENTAL BUYER left message for Raudel. Addendum: 05/09/17 at 1131 by Joana Velázquez LCSW DEPARTMENTAL BUYER contacted: [facility]-DEPARTMENTAL BUYER spoke to Mayra; asked for pt's information to be faxed; DEPARTMENTAL BUYER has asked ED staff to fax information. [facility]-DEPARTMENTAL BUYER spoke to Fátima; asked for pt's information to be faxed; DEPARTMENTAL BUYER has asked ED staff to fax information.
--- NOTE | 2017-05-09 11:39 | NUR ---
Placed in gown, all clothing removed. VSS, will continue to monitor. Lunch tray ordered.
--- NOTE | 2017-05-09 11:39 | NUR ---
Pt sister called. Pt does not wish to speak with any family members.
--- NOTE | 2017-05-09 11:44 | NUR ---
Security at bedside for wanding. Lunch tray provided. Pt lying in bed, does not wish to eat at this time.
--- NOTE | 2017-05-09 12:24 | NUR ---
Called DR. Briscoe for psych consult. Aware and stated will come to see pt today.
--- NOTE | 2017-05-09 13:14 | NUR ---
Pt is resting in bed,respirations even and unlabored.
--- NOTE | 2017-05-09 13:30 | NUR ---
Patient resting quietly. No acute distress noted. Vital signs within normal range. Offered patient meal, patient refused to eat. Will continue to monitor.
--- NOTE | 2017-05-09 13:45 | NUR ---
Patient resting quietly. No acute distress noted. Vital signs within normal range. Will continue to monitor.
--- NOTE | 2017-05-09 14:01 | NUR ---
Patient resting quietly, equal chest rise and fall. No acute distress noted. Vital signs within normal range. Patient refusing to eat. Will continue to monitor.
--- NOTE | 2017-05-09 14:10 | NUR ---
Social Service Note: RNFA received call from Raudel at [facility] who asked for pt's information to be faxed over for review. RNFA has asked ED staff to fax referral.
--- NOTE | 2017-05-09 14:15 | NUR ---
Patient resting quietly. No acute distress noted. Vital signs within normal range. Will continue to monitor.
--- NOTE | 2017-05-09 14:30 | NUR ---
Note oli in EDM - 05/09/17 at 1451 by JORDYNMAURI Patient resting quietly. No acute distress noted. Vital signs within normal range. Will continue to monitor.
--- NOTE | 2017-05-09 14:30 | NUR ---
Patient resting quietly. No acute distress noted. Vital signs within normal range. Offered patient food, patient refused to eat. Will continue to monitor.
--- NOTE | 2017-05-09 14:45 | NUR ---
Patient resting quietly. No acute distress noted. Vital signs within normal range. Will continue to monitor.
--- NOTE | 2017-05-09 15:00 | NUR ---
Patient resting quietly, equal chest rise and fall. No acute distress noted. Vital signs within normal range. Will continue to monitor.
--- NOTE | 2017-05-09 15:15 | NUR ---
Patient resting quietly, equal chest rise and fall. No acute distress noted. Vital signs within normal range. Will continue to monitor.
--- NOTE | 2017-05-09 15:18 | NUR ---
Pt woke up and ambulate to bathroom. Steady gait. No suicidal ideation.
--- NOTE | 2017-05-09 15:20 | NUR ---
Pt ambulate back to bed with steady gait. Offered pt food, pt refuses to eat and does not answer questions. Pt back in bed sleeping with equal chest rise and fall. VS stable, afebrile.
--- NOTE | 2017-05-09 15:30 | NUR ---
Patient resting quietly, equal chest rise and fall. No acute distress noted. Vital signs within normal range. Will continue to monitor.
--- NOTE | 2017-05-09 15:45 | NUR ---
Patient resting quietly, equal chest rise and fall. No acute distress noted. Vital signs within normal range. Will continue to monitor.
--- NOTE | 2017-05-09 16:00 | NUR ---
Patient resting quietly, equal chest rise and fall. No acute distress noted. Patient refuses to answer questions. Vital signs within normal range. Will continue to monitor.
--- NOTE | 2017-05-09 16:15 | NUR ---
Patient resting quietly, equal chest rise and fall. No acute distress noted. Offered pt food, pt refuse to eat or answer any questions. Vital signs within normal range. Will continue to monitor.
--- NOTE | 2017-05-09 16:30 | NUR ---
Patient resting quietly, equal chest rise and fall. No acute distress noted. Patient refuse to answer questions and eat food. Vital signs within normal range. Will continue to monitor.
--- NOTE | 2017-05-09 16:45 | NUR ---
Patient resting quietly, equal chest rise and fall. No acute distress noted. Patient refuse to answer questions and refuse to eat. Vital signs within normal range. Will continue to monitor.
--- NOTE | 2017-05-09 17:00 | NUR ---
Patient resting quietly, equal chest rise and fall. No acute distress noted. Vital signs within normal range. Will continue to monitor.
--- NOTE | 2017-05-09 17:08 | NUR ---
Dr. Michaels at bedside with pt.
--- NOTE | 2017-05-09 17:15 | NUR ---
Patient resting quietly, equal chest rise and fall. No acute distress noted. Patient verbalizes, "I never wanted to kill myself." Patient also provided with safety meal tray but does not wish to eat at this time. Vital signs within normal range. Will continue to monitor.
[2017-05-09 17:34] VITALS: BP_SYST 162
--- NOTE | 2017-05-09 19:14 | NUR ---
Endorsed plan of care to Megan RN via [facility]. Pt asleep with equal chest rise and fall. No signs of distress noted. VS stable afebrile.
--- NOTE | 2017-05-09 19:15 | NUR ---
Patient endorsed by am nurse Keisha. Patient lying in bed sleeping comfortably. No sign of distress noted. Awaiting transportaion for patient discharge. Will continue to monitor.
--- NOTE | 2017-05-09 20:00 | NUR ---
Patient lying in bed with eyes closed. Rise and fall of chest noted. No sign of distress noted at this time. Will continue to monitor.
--- NOTE | 2017-05-09 20:24 | NUR ---
CONTACTED [facility] FOR ETA UPDATE. NO ETA AVAILABLE PER DISPATCHER.
--- NOTE | 2017-05-09 21:00 | NUR ---
Patient lying in bed with eyes closed. Rise and fall of chest noted. No sign of distress noted at this time. Will continue to monitor.
--- NOTE | 2017-05-09 21:30 | NUR ---
Patient lying in bed with eyes closed. Rise and fall of chest noted. No sign of distress noted at this time.No ETA yet from transportation. Will continue to monitor.
--- NOTE | 2017-05-09 21:57 | NUR ---
Patient accompanied to bathroom to void. Returned to room 5 and went back to sleep. No sign of distress noted. Denies pain at this t meg. Will continue to monitor. Follow up on transportation done. No ETA advised.
--- NOTE | 2017-05-09 22:22 | NUR ---
Patient's transport already arrived. Patient walked out ER with belongings in stable condition. Patient discharged earlier but left ER at this time due awaited transpo.
== END 2017-05-09 22:22 | disposition home or self-care (01) ==
LOC: SED 20:07
DX: T50.991A Poisoning by other drugs, medicaments and biological substances, accidental (unintentional), initial encounter (principal); F41.9 Anxiety disorder, unspecified; E11.9 Type 2 diabetes mellitus without complications; I10 Essential (primary) hypertension; Z79.899 Other long term (current) drug therapy; Y92.89 Other specified places as the place of occurrence of the external cause
CPT/HCPCS: 36415; 71010; 80053; 80307; 81000; 81025; 82962; 83880; 84484; 85025; 85610; 85730; 93005; 96361; 96372; 96374; 96375; 96376; 99285; G0480; G0481; G0482; J1200 ×2; J1630 ×2; J1815; J2060 ×2; J7030; J7040